=== PATIENT | female | born 1970 | race Asian ===

== ENCOUNTER 2024-06-22 18:07 | Day surgery (SDC) | payer OTHER ==
[~2024-06-22] VITALS: Ht 152.4 cm; Wt 61.9 kg
[2024-06-22] MEDS ORDERED: OMEP-173 PO (18:24)
[2024-06-22 19:02] LABS: BASO # 0.1 10^3/uL (0.0-0.2); BASO % 0.5 % (0.0-1.0); EOS # 0.3 10^3/uL (0.0-0.5); EOS % 1.7 % (0.0-3.0); HEMOGLOBIN 14.6 g/dl (12.0-15.5); LYMPH # 1.7 10^3/uL (1.5-5.0); LYMPH % 11.7 % (24.0-44.0); MEAN CORPUSCULAR HEMOGLOBIN 30.2 pg (27.0-33.0); MONO % 6.9 % (2.0-8.0); NEUTROPHILS # 11.7 10^3/uL (1.5-8.5); NEUTROPHILS % 78.8 % (36.0-66.0); PLATELET COUNT, AUTOMATED 209 10^3/uL (150-450); RED BLOOD COUNT 4.83 10^6/uL (4.00-5.40); WHITE BLOOD COUNT 14.9 10^3/uL (4.0-10.0)
[2024-06-22 19:06] LABS: KETONE, URINE AUTO RFX NEGATIVE (NEGATIVE); LEUKOCYTE ESTERASE UR AUTO RFX NEGATIVE (NEGATIVE); NITRITE, URINE AUTO RFX NEGATIVE (NEGATIVE); RBC, URINE AUTO RFX 1 /HPF (0-3); SQUAM EPITHELIAL CELL UR AURFX 0 /HPF (0-6); WBC, URINE AUTO RFX 0 /HPF (0-3)
[2024-06-22 19:31] LABS: LIPASE 37 U/L (12-53)
[2024-06-22 19:33] LABS: ALBUMIN 3.8 G/DL (3.2-5.2); ALKALINE PHOSPHATASE 91 U/L (35-104); ALT/SGPT 18 U/L (7.0-40); AST/SGOT 11 U/L (<34); BILIRUBIN,DIRECT 0.1 MG/DL (<0.4); BILIRUBIN,TOTAL 0.5 MG/DL (0.3-1.2); BLOOD UREA NITROGEN 12 MG/DL (9-23); CARBON DIOXIDE LEVEL 28 MMOL/L (20-31); CHLORIDE LEVEL 103 MMOL/L (98-107); CK-MB VALUE MASS < 1.0 NG/ML (<3.6); CPK CREATINE PHOSPHOKINASE 80 U/L (34-145); CREATININE FOR GFR 0.62 MG/DL (0.55-1.30); GLOMERULAR FILTRATION RATE > 60.0 (>51); GLUCOSE, FASTING 102 MG/DL (60-100); MB/CK RELATIVE INDEX 1.25 (< OR =4); POTASSIUM SERUM 3.9 MMOL/L (3.5-5.1); SODIUM LEVEL 142 MMOL/L (136-145); TOTAL PROTEIN 7.4 G/DL (5.7-8.2)
[2024-06-22] MEDS ORDERED: ISOVUE-370 76% 100ML VIAL As Ordered ONE (21:38)
[2024-06-23] VITALS (8 sets, daily range): BP systolic 95–112; BP diastolic 51–91; TEMP 97.1–98.1; O2SAT 90–100
[2024-06-23] MEDS ORDERED: LR 1,000 ML IV SCH (01:05)
[2024-06-23] MEDS: PIPERACILLIN/TAZOBACTAM SOD 3.375 GM in DEXTROSE 5% (D5W) ADV/MINI-BAG 50 ML IV SCH ×2 (01:18→07:52)
[2024-06-23] MEDS: ACETAMINOPHEN *IV* 1,000 MG in IV 1 EA IV ONE (01:18)
[2024-06-23] MEDS ORDERED: NS (Normal Saline) 0.9% 1,000 ML IV SCH (01:35)
[2024-06-23] MEDS ORDERED: ONDANSETRON 4MG 2ML VIAL IV PRN (01:40)
[2024-06-23] MEDS ORDERED: MORPHINE 2 MG/ML 1ML VIAL IV PRN ×3 (01:40)
[2024-06-23] MEDS: NS (Normal Saline) 0.9% 1,000 ML IV SCH (02:07)
[2024-06-23] MEDS: KETOROLAC 30 MG/ML 1ML VIAL IV ONE (02:13)
[2024-06-23] MEDS ORDERED: VITA400T15 PO (02:25)
[2024-06-23] MEDS ORDERED: OMEG10002 PO (02:25)
[2024-06-23] MEDS ORDERED: HOME MED LIST COMPLETE! XX SCH (02:25)
[2024-06-23] MEDS ORDERED: GLUCCAP5 PO (02:25)
[2024-06-23] MEDS ORDERED: ROCURONIUM BROMIDE 50MG/5ML VIAL As Ordered ONE (07:34)
[2024-06-23] MEDS ORDERED: SUGAMMADEX SODIUM 500 MG/5 ML VIAL (BRIDION) As Ordered ONE (07:34)
[2024-06-23] MEDS ORDERED: propofoL 200 MG/20 ML VIAL As Ordered ONE (07:34)
[2024-06-23] MEDS ORDERED: LIDOCAINE 2% 100MG/5ML SDV (FOR ANES.) As Ordered ONE (07:34)
[2024-06-23] MEDS ORDERED: fentaNYL 100 MCG/2 ML INJECTION As Ordered ONE (07:34)
[2024-06-23] MEDS ORDERED: MIDAZOLAM INJ 2MG/2ML VIAL As Ordered ONE (07:34)
[2024-06-23] MEDS ORDERED: ONDANSETRON 4MG 2ML VIAL As Ordered ONE (07:35)
[2024-06-23] MEDS ORDERED: ACETAMINOPHEN 1000MG/100ML IV BAG As Ordered ONE (07:36)
[2024-06-23] MEDS ORDERED: KETOROLAC 30 MG/ML 1ML VIAL As Ordered ONE (07:39)
[2024-06-23] MEDS: PANTOPRAZOLE 40MG VIAL IV SCH (07:52)
[2024-06-23] MEDS ORDERED: KETOROLAC 30 MG/ML 1ML VIAL IV PRN (08:00)
[2024-06-23] MEDS ORDERED: GLYCOPYRROLATE INJ 0.2 MG/ML 2 ML VIAL As Ordered ONE (08:55)
[2024-06-23] MEDS ORDERED: ePHEDrine SULFATE 25 MG/5 ML(5MG/ML) SYRINGE As Ordered ONE (09:29)
[2024-06-23] MEDS ORDERED: HYDROMORPHONE HCL 0.5 MG/ 0.5 ML SYRINGE IV PRN (10:00)
[2024-06-23] MEDS ORDERED: oxyCODONE 5MG TAB PO PRN (10:00)
[2024-06-23] MEDS ORDERED: fentaNYL 100 MCG/2 ML INJECTION IV PRN (10:00)
[2024-06-23] MEDS: KETOROLAC 30 MG/ML 1ML VIAL IV SCH (14:28)
== END 2024-06-23 17:26 | disposition home or self-care (01) ==
LOC: M ED 18:07 → M SDC 18:09 → M ED 06-23 01:39 → UNDOADMIN 06-23 01:39 → M ED INP 06-23 01:39 → M PED 06-23 04:32 → M SDC 06-23 17:25 → UNDODISIN 06-23 17:26 → M SDC 06-23 17:26
PROVIDERS: ATTEND Surgery
DX: K35.80 Unspecified acute appendicitis (principal); R59.9 Enlarged lymph nodes, unspecified; K21.9 Gastro-esophageal reflux disease without esophagitis; Z79.899 Other long term (current) drug therapy
CPT/HCPCS: 44970; 74177; 80048; 80076; 81001; 82550; 82553; 83690; 84484; 85025; 87086; 88305; 93005; 96365; 96366; 96375; 96376; 99284; J0131; J0665; J1100; J1596; J1885; J2250; J2405; J2470; J2543; J3010; Q9967

== ENCOUNTER → 2024-06-22 | Outpatient (REF) | payer OTHER ==
[~2024-06-22] MED LIST: GLUCCAP5 PO; OMEG10002 PO; OMEP-173 PO; VITA400T15 PO
== END ==
LOC: M LAB REF 19:27
PROVIDERS: ATTEND Physician Assistant
DX: R10.84 Generalized abdominal pain (principal)

== ENCOUNTER → 2024-07-31 | Outpatient (CLI) | payer OTHER | LOC: M WHC 07:28 → EDUNIT# 09:30 | PROVIDERS: ATTEND Physician Assistant | DX: N63.20 Unspecified lump in the left breast, unspecified quadrant (principal) ==